=== PATIENT | male | born 1980 | race Caucasian/White ===

== ENCOUNTER 2018-08-19 15:52 | Emergency (ER) | payer SELFPAY ==
[~2018-08-19] VITALS: Ht 185.4 cm; Wt 136.1 kg
[~2018-08-19 15:52] MED LIST: AMOXICILLIN500 MG PO; BACTRIM DS 8001 TA1 PO; BACTRIM DS 8001 TAB PO; COLCHICINE0.5 MG PO; COLSALIDE IMPR0.6 MG PO; FLEXERIL10 MG PO; HYDROCODONE BIT1 T11 PO; IBU800 MG PO; INDOCIN50 M1 PO; INDOCIN50 MG PO; KEFLEX500 M1 PO; KEFLEX500 MG PO; LIDEX0.05% T; LOTRISONE 0.05%1 CRE TP; MEDROL DOSEPAK4 MG PO; MOTRIN800 MG PO; PRILOSEC40 MG PO; ULTRAM50 MG PO; VICODIN 5/500 505 MG PO; ZOFRAN ODT4 MG SL; ZOFRAN4 MG PO
[2018-08-19] MEDS ORDERED: NAPROSYN500 MG PO (16:34)
[2018-08-19] MEDS ORDERED: CHLORZOXAZONE500 M2 PO (16:34)
== END 2018-08-19 18:37 | disposition home or self-care (01) ==
LOC: ED 15:52
DX: M54.42 Lumbago with sciatica, left side (principal); M54.41 Lumbago with sciatica, right side; R03.0 Elevated blood-pressure reading, without diagnosis of hypertension; K21.9 Gastro-esophageal reflux disease without esophagitis

== ENCOUNTER 2019-04-27 12:22 | Emergency (ER) | payer SELFPAY ==
[~2019-04-27] VITALS: Ht 175.2 cm; Wt 104.3 kg
[~2019-04-27 12:22] MED LIST changes: +CHLORZOXAZONE500 M2 PO; +NAPROSYN500 MG PO
== END 2019-04-27 12:48 | disposition left against medical advice (07) ==
LOC: ED 12:22
DX: T40.2X1A Poisoning by other opioids, accidental (unintentional), initial encounter (principal); R51 Headache; R40.20 Unspecified coma; K21.9 Gastro-esophageal reflux disease without esophagitis; J45.909 Unspecified asthma, uncomplicated; M10.9 Gout, unspecified; F17.200 Nicotine dependence, unspecified, uncomplicated; Y92.89 Other specified places as the place of occurrence of the external cause